=== PATIENT | male | born 1955 | race Caucasian/White ===

== ENCOUNTER 2016-07-31 13:37 | Inpatient (IN) | payer BC ==
--- NOTE | ~2016-07-31 | DS ---
Discharge Summary [place] [address] [place]. [address] NAME: HIRAL MERIDA : 51 STATUS : DIS IN PAT#: [id number] AGE: 61 ADM/REG DATE : 07/31/16 MR#: [id number] REPORT SERV DATE: 08/11/16 DICTATED BY: TERI BENNETT DATE: 08/10/16 REPORT STATUS : Draft TRANSCRIBED BY: MODL DATE: 08/10/16 ADMISSION DATE: 07/31/2016 DISCHARGE DATE: 08/05/2016 DISCHARGE DIAGNOSES: 1. Hepatic mass with radiologic evidence of cirrhosis and elevated alpha fetoprotein. 2. Fatigue. 3. Heme-positive stools. 4. Cirrhosis and hypersplenomegaly radiographically. 5. Diabetes type 2. DISCHARGE: Please see discharge summary job #[id number] done by Dr. Steven Smith for discharge summary as this is a complete discharge summary. The patient was actually discharged on 08/05/2016. Wait tomorrow for a post procedure as the patient did not have any complications, was able to be discharged home with followup also Dr. Chen on at 10 a.m. Again please see complete interim discharge summary performed by Dr. Steven Smith for complete hospital course, followups, and discharge medications. TICON/MEHUL Teri Bennett MD / [id number] CC: MD Yanet Funk D.O. F.A.C.P.
--- NOTE | ~2016-07-31 | CN ---
Consultation Report [facility] [address] [place]. [address] NAME: HIRAL NOE : 51 STATUS : ADM Vickie PAT#: [id number] AGE: 61 ADM/REG DATE : 07/31/16 MR#: [id number] REPORT SERV DATE: 08/01/16 DICTATED BY: RICHARD HENRIQUEZ DATE: 07/31/16 REPORT STATUS : Draft TRANSCRIBED BY: MODL DATE: 07/31/16 CONSULT NOTE DATE OF CONSULTATION: 07/31/2016 REQUESTING PHYSICIAN: Dr. Smith. REASON FOR EVALUATION: Abnormal CT scan. HISTORY: Mr. Noe is a 61-year-old gentleman whose chief complaint is feeling fatigued. This has been an ongoing problem for the past month and he is seeing his primary care physician as well as going to the emergency room on numerous occasions. He has had an extensive cardiac work up during this process and after having a stress test performed, he states he started feeling even worse. He describes having bad leg cramps that radiated into his back and go down both legs, and four days ago started having some vague abdominal pain. He states his abdominal pain is actually improved somewhat. He denies any diarrhea. He did note he had one bowel movement that seemed to be dark and possibly contained old blood, but this quickly resolved according to him. He has had colonoscopies in the past and Dr. 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 He has never felt this way before and does report a low grade fever and chills at home, but he never took his temperature. A CT scan was obtained in the emergency room. It was done without oral or intravenous contrast unfortunately. There is evidence of cirrhosis and splenomegaly as well as some ascites, and there was also concern about pneumatosis involving his right colon; however, on my read this is very difficult to delineate because he has absolutely no contrast given and it is very hard to determine whether this is intraluminal or not. He certainly does not have any free air or evidence of portal venous gas by my report. He went to the emergency room at [facility] Sunday night and was given IV fluids and immediately felt better and was released. He does not seem like he has had a good oral intake over the last few days. He denies any syncope though. PAST MEDICAL HISTORY: Significant for insulin, hypertension, coronary artery disease, gastroesophageal reflux disease. PREVIOUS SURGERIES: Include a cardiac stent and a laparoscopic cholecystectomy. He has also had some foot surgeries and some orthopedic surgeries. MEDICATIONS: Include vitamins, NovoLog, Levemir, Prinivil, Lopressor, Prilosec, Prandin, Mucinex. ALLERGIES: CIPRO. SOCIAL HISTORY: Admits to drinking daily. Denies tobacco abuse. He is and has a very supportive family. Consultation Report [address] [place]. [address] NAME: HIRAL NOE : 51 STATUS : ADM Vickie PAT#: [id number] AGE: 61 ADM/REG DATE : 07/31/16 MR#: [id number] REPORT SERV DATE: 08/01/16 DICTATED BY: RICHARD HENRIQUEZ DATE: 07/31/16 REPORT STATUS : Draft TRANSCRIBED BY: MEHUL DATE: 07/31/16 FAMILY HISTORY: Noncontributory. REVIEW OF SYSTEMS: Comprehensive 12-point review of systems obtained and completely negative other than what is mentioned in the history of present illness. PHYSICAL EXAMINATION: VITAL SIGNS: Temperature is 98.1, pulse 81, blood pressure 168/75. GENERAL: An elderly gentleman, in no acute cardiopulmonary distress. HEENT: Pupils are equal, round, and reactive to light. Extraocular movements are intact. Conjunctivae are not icteric. NECK: Supple. CARDIOVASCULAR: Regular rate and rhythm. PULMONARY: Normal respiratory effort. Breath sounds are clear. ABDOMEN: Soft. He has normal bowel sounds. He has very itegrof-sz-lbcg tenderness located on both the right and left side of his abdomen, but he has absolutely no peritoneal signs and no rebound and no pain out of proportion to physical exam and certainly, clinically does not have any evidence of horrible ischemia. EXTREMITIES: No clubbing, cyanosis, or edema. LABORATORY DATA: White blood cell count is 7, hematocrit 35, platelet count 61. Lactate 2.5. INR is 1.4. Sodium is 135, potassium 5.1, chloride 100, CO2 of 26, BUN 20, creatinine 0.9, glucose 210, albumin 2.7, total bilirubin 1.5, alkaline phosphatase 348, ALT 50, AST 58, lipase 210. CT scan of the abdomen and pelvis was obtained without contrast, demonstrate questionable pneumatosis and cirrhosis. ASSESSMENT: 1. Cirrhosis. 2. Diabetes. 3. Hypertension. 4. History of coronary artery disease. 5. Thrombocytopenia. 6. Possible ischemic colitis. PLAN: Clinically, he does not have an acute surgical abdomen. I would favor observation with aggressive fluid hydration and IV Flagyl. He needs to have repeat contrast study to help assess his circulation and possibly mesenteric duplex ultrasound and also would consider obtaining a GI consult. We will continue to follow along with you and we will only plan on doing surgery if he clinically deteriorates, but currently, hopefully he will improve with conservative measures. SHIRA/MEHUL Consultation Report [place] [id number] [place]. [address] NAME: HIRAL NOE : 51 STATUS : ADM Vickie PAT#: [id number] AGE: 61 ADM/REG DATE : 07/31/16 MR#: [id number] REPORT SERV DATE: 08/01/16 DICTATED BY: RICHARD HENRIQUEZ DATE: 07/31/16 REPORT STATUS : Draft TRANSCRIBED BY: MEHUL DATE: 07/31/16 Richard Henriquez M.D. / [id number]
--- NOTE | ~2016-07-31 | IDS ---
Interim Discharge Summary [facility] [address] [place]. [address] NAME: HIRAL MERIDA : 51 STATUS : ADM IN [facility]#: [id number] AGE: 61 ADM/REG DATE : 07/31/16 MR#: [id number] REPORT SERV DATE: 08/04/16 DICTATED BY: JR. SMITH WILLIAM JOHN DATE: 08/04/16 REPORT STATUS : Draft TRANSCRIBED BY: MODFlo DATE: 08/04/16 ADMISSION DATE: 07/31/2016 DISCHARGE DATE: 08/05/2016 TENTATIVE DATE OF DISCHARGE: 08/05/2016. DISCHARGE DIAGNOSES: 1. Hepatic mass with radiographic evidence of cirrhosis and elevated alpha-fetoprotein. 2. Fatigue. 3. Heme-positive stools. 4. Cirrhosis and hypersplenism radiographically. 5. Diabetes mellitus type 2. OPERATIONS, PROCEDURES, AND TREATMENTS: 1. Chest x-ray done on 07/31/2016 showed no acute cardiopulmonary abnormalities. 2. CT of the abdomen and pelvis with and without contrast on 07/31/2016, which showed cirrhotic liver with splenomegaly and ascites suggestive of liver failure with indeterminate defect in the right hepatic lobe with additional studies recommended. The noncontrast study showed pneumatosis, not confirmed with the contrast study. There was a cirrhotic liver with splenomegaly. 3. MRI of the abdomen done on 08/01/2016 showed cirrhotic liver with hepatomegaly and ascites. Multiple ill-defined defects in the right hepatic lobe, suspicious for multifocal hepatocellular cancer versus metastatic neoplasm. There is also a large wedge-shaped defect on the diffusion images of the left hepatic lobe, not as well further characterized on the contrast sequences, but suspect this could also harbor a diffuse infiltrating tumor pathology based on either on hepatocellular or metastatic origin. 4. CT-guided liver biopsy to be done today by Dr. Gibbs. TENTATIVE DISCHARGE MEDICATIONS: 1. Norvasc 10 mg daily. 2. Lipitor 20 mg daily. 3. B12 at 1000 mg daily. 4. Vitamin D 1000 units daily. 5. Levemir insulin 12 units twice a day. 6. Sliding scale Humalog insulin. 7. Lisinopril 20 mg twice a day. 8. Mag-Ox 500 mg daily. 9. Omeprazole 40 mg daily. 10.Propranolol 60 mg twice a day. 11.Aldactone 25 mg daily. 12.Albuterol metered-dose inhaler two puffs every four hours as needed. 13.Aspirin 81 mg, holding until seen by Dr. Chen. 14.PreserVision one capsule twice a day. 15.Mucinex 600 twice a day. Interim Discharge Summary [place] [address] [place]. [address] NAME: HIRAL MERIDA : 51 STATUS : ADM IN PAT#: [id number] AGE: 61 ADM/REG DATE : 07/31/16 MR#: [id number] REPORT SERV DATE: 08/04/16 DICTATED BY: JR. SMITH WILLIAM JOHN DATE: 08/04/16 REPORT STATUS : Draft TRANSCRIBED BY: MODFlo DATE: 08/04/16 HOSPITAL COURSE: The patient was a 61-year-old male presented to the emergency room on 07/31/2016 with extreme lethargy. The patient had a cardiac catheterization done one month ago by Dr. Sullivan, which was normal. Since then, he had been feeling fatigued, had some cough and fever to the point that he nearly cannot walk across the house. Initial exam showed blood pressure of 136/75, heart rate of 90, respiratory rate of 18, he is afebrile. Exam was remarkable for a slightly icteric appearance of the sclerae. CT of the abdomen showed pneumatosis of the cecum and proximal ascending colon. Stool was positive. INR was elevated at 1.4. Platelets were low. The patient is admitted to the clinical decision unit. He was seen in consultation by General Surgery, Dr. Disla. The initial noncontrast CT of the abdomen, which showed pneumatosis coli, was repeated with contrast, did not show evidence of pneumatosis. No further surgical intervention was considered. The patient did, however, have evidence of a defect in the liver, therefore, an MRI of the liver was performed as well as alpha- fetoprotein. The MRI is detailed above, which showed multiple ill-defined masses suspicious for hepatic cancer. Alpha-fetoprotein is 25.9. The patient was on aspirin 81 mg orally daily. At that time, I discussed this with Dr. Gibbs. We agreed to transfuse fresh frozen plasma and platelets. Unfortunately, in addition to the above products, the patient also received two units of packed red blood cells inadvertently. This was disclosed to the patient. The patient is to get his liver biopsies today, 08/04/2016, and will be observed overnight. If there is no evidence of bleeding or other complication, the patient will be discharged home tomorrow, 08/05/2016. I called Dr. Chen of General Surgery and discussed it with him and made a followup appointment for 08/10/2016 at [address] a[address] at [address] [place] [address]. The patient was made aware of the appointment and the importance of following up to ensure this potentially life-threatening process is handled appropriately. Regarding the heme-positive stools, he was seen by Dr. Mejia of Gastroenterology and recommend outpatient followup. PLAN: 1. Liver biopsy today. 2. Observe overnight. If no complications, the patient will be discharged tomorrow. 3. Follow up with Dr. Chen on at 10 a.m. For today's exam and laboratory, please see daily progress note. WJF/MEHUL Jose Carlos Smith Jr, MD / [id number] CC: Jose Carlos Smith Jr, MD Interim Discharge Summary [address] [address] NAME: HIRAL MERIDA : 51 STATUS : ADM IN [facility]#: [id number] AGE: 61 ADM/REG DATE : 07/31/16 MR#: [id number] REPORT SERV DATE: 08/04/16 DICTATED BY: JR. SMITH WILLIAM JOHN DATE: 08/04/16 REPORT STATUS : Draft TRANSCRIBED BY: MODFlo DATE: 08/04/16 Yanet Martines D.O. F.A.C.P.
--- NOTE | ~2016-07-31 | HP ---
History And Physical [place] [id number] [place]. [address] NAME: HIRAL MERIDA : 51 STATUS : ADM Vickie PAT#: [id number] AGE: 61 ADM/REG DATE : 07/31/16 MR#: [id number] REPORT SERV DATE: 07/31/16 DICTATED BY: SANA FIGUEREDO DATE: 07/31/16 REPORT STATUS : Draft TRANSCRIBED BY: MODFlo DATE: 07/31/16 DATE OF ADMISSION: 07/31/2016 REASON FOR ADMISSION: Fatigue. HISTORY: This is a 61-year-old white male, who has been having problems for about the last month. It probably goes back farther than that, perhaps two months because he had a cardiac catheterization done by Dr. Sullivan one month ago, which was normal. He has just been feeling fatigued. He had a cough and some fever associated with this and was improved when he took an aerosol treatment with albuterol. He now breathes well and his fever has gone away, however, he does feel just fatigue and cannot walk across the house. He did have some blood tests done in the office and was found to have a low albumin, high alkaline phosphatase, both of which is improved slightly on today's test. His total bilirubin had gone from 1.9 down to 1.5 now. He does have some atherosclerotic cardiovascular disease, but the cardiac catheterization was negative. He was followed by Dr. Ro for cirrhosis. He has had a lifelong thrombocytopenia. He has had splenomegaly and evidence of portal hypertension by CT scan, all of which implies cirrhosis of the liver. He was seen and examined in the emergency room by Lily, nurse practitioner. She called Dr. Disla originally because of pneumatosis coli on the CT scan. Dr. Disla requested CT scan of the abdomen and pelvis with contrast and returning call for consideration. PAST MEDICAL HISTORY: He has had some pancreatitis. He had ERCP, EGD, all done within the last year. He had the exercise tolerance test, which is slightly abnormal followed by cardiac catheterization. He says he was so fatigued after the exercise tolerance test that he could not move for several days. He is in the emergency room because of his extreme fatigue now and I requested to admit the patient for evaluation and treatment. Treatment is not discerned well yet, so observation status will be embarked upon. HOME MEDICATIONS: Include acetaminophen 325 p.o. q.4 hours p.r.n.; albuterol inhaler two puffs every four hours as needed; Norvasc 10 mg p.o. daily; artificial tears daily; aspirin 81 mg p.o. daily; atorvastatin 20 mg p.o. at bedtime; Omnicef 300 mg p.o. daily, starting on 07/24/[address] Martines; vitamin D 1000 units p.o. daily; vitamin B 1000 mcg p.o. daily; NovoLog sliding scale; Levemir 12 units subcutaneously b.i.d.; Prinivil 20 mg p.o. b.i.d.; Mag-Ox 250 mg two with lunch; metoprolol 50 mg p.o. b.i.d.; omeprazole 40 mg p.o. daily; Prandin 2 mg p.o., he uses this p.r.n., so he will diminish his insulin use; Mucinex as needed; and zinc, copper, lutein capsules two capsules twice a day. SOCIAL HISTORY: He is , lives with . 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 He lives in [place]. He previously attended [employer], but has not gone in some time. History And Physical [address] [address] NAME: HIRAL MERIDA : 51 STATUS : ADM Vickie PAT#: [id number] AGE: 61 ADM/REG DATE : 07/31/16 MR#: [id number] REPORT SERV DATE: 07/31/16 DICTATED BY: SANA FIGUEREDO DATE: 07/31/16 REPORT STATUS : Draft TRANSCRIBED BY: MODL DATE: 07/31/16 He quit drinking alcohol about two to three weeks ago. He has not had a drink in two to three weeks. He does not smoke cigarettes. FAMILY HISTORY: He knows of no particular disease that run in the family, especially that might affect his life expectancy. Strong family history of colon cancer. The patient is getting colonoscopies every five years [address] Ro. REVIEW OF SYSTEMS: He had a sleep study and had mild sleep apnea with 12.8 apnea-hypopnea index and low tena of oxygen saturation of 86%. He does have atrial fibrillation intermittently. He has had three episodes, but no anticoagulation has been given and he has discussed this specifically with Dr. Sullivan. PHYSICAL EXAMINATION: GENERAL: Well-developed white male, in no acute distress. VITAL SIGNS: Blood pressure 136/75 with a heart rate 90, respiratory rate 18, afebrile. HEENT: EOMI. Sclerae clear. Skin slightly icteric diffusely. He does have facial telangiectasias and slight rubor. NECK: No bruit without any JVD. CHEST: Clear to A and P. HEART: Regular S1 and S2 without murmur, gallop, or click. ABDOMEN: Soft. Bowel sounds positive. There is some tenderness in the pelvic area, right being greater than the left. No particular mass was felt. EXTREMITIES: Have no edema. Distal pulses are intact in the dorsalis pedis and posterior tibial. NEUROLOGIC: He does withdraw to plantar stimulation. Fire Protection Fabricator is equal and symmetric bilaterally. Coordination is intact. He has no tremor. He is symmetric and equal neurologically bilaterally. SKIN: Slightly icteric with telangiectasias on the face and some rubor. LYMPHATICS: There is no adenopathy palpable. LABORATORIES AND IMAGING: The CT scan of the abdomen showed pneumatosis of the cecum and proximal ascending colon with mild wall thickening concerning for possible ischemia. Dr. Disla has been consulted. CT scan of the abdomen has cirrhotic liver pattern with splenomegaly and some prominence of the main portal vein, particularly with portal hypertension. Stool was positive for blood. Lactate level was 2.5. CBC showed white count of 7000, hemoglobin 12.5, hematocrit 35.8, platelet count was 61,000 (this is a chronic problem). He said he has had all his life with the level being 68,000 prior to his gallbladder surgery in 2005. His prothrombin time was 1.4, INR with a PTT of 33.5. The portable chest x-ray showed no acute cardiopulmonary abnormality. Urinalysis shows specific gravity 1.019, negative dip, 2 white cells, 1 red cell per high-powered field with some hyaline casts. His CMP showed a sodium of 135, potassium 5.1. His creatinine was 0.99, BUN 20, glucose was 210, albumin was 2.7, globulin 4.3, total phosphorus was 1.5, and alkaline phosphatase is 348, AST 58, lipase 210. History And Physical [address] [place]. [address] NAME: HIRAL MERIDA : 51 STATUS : ADM Vickie PAT#: [id number] AGE: 61 ADM/REG DATE : 07/31/16 MR#: [id number] REPORT SERV DATE: 07/31/16 DICTATED BY: SANA FIGUEREDO DATE: 07/31/16 REPORT STATUS : Draft TRANSCRIBED BY: MEHUL DATE: 07/31/16 ASSESSMENT: 1. Generalized fatigue. This has been going on for over six weeks. He feels worse today. We will check multiple lab tests, including GGT and ammonia level. We will check cortisols diurnal and consider an ACTH stimulation test. 2. Pneumatosis coli. Dr. Disla wants contrast study to see if it is pathologic, perhaps a CTA will show some evidence of vascular compromise. 3. Heme-positive stool, question mesenteric vascular disease. 4. ASCVD, history of myocardial infarction status post cardiac catheterization with a little problem. 5. Hepatic cirrhosis, likely from the alcohol, though he may have had a hepatitis from a viral problem. We will check a CMV titer and Monospot test as well. 6. Generalized weakness. Checking for infectious versus endocrinologic. We will check cortisol levels at 8 p.m. and 8 a.m. to see if there is diurnal variation and consider ACTH stimulation test. 7. Fatigue. It is his primary complaint. 8. History of alcohol use. 9. Cirrhosis by CT scan evidence. He has not had anything to drink in the last two to three weeks because too fatigued to walk across the house to get it. 10.He has no cigarette use or abuse. 11.Thrombocytopenia. It is chronic and lifelong, though may be due to the alcohol suppression or hepatic hemogram and is compatible with the splenomegaly that was historically revealed. 12.Diabetes type 2 with fair control, most recently though when he has fever, he knows that it goes up. We will check a procalcitonin and a D-dimer test. 13.Melena about two or three days ago. We will get Dr. Ro involved as Dr. Ro is his primary patternmaker metal. PLAN: Checking lab test as mentioned above. Troponin level was normal at less than 0.02 and his cardiac catheterization being normal as well. We will not pursue that avenue, but look for infectious or endocrinologic etiologies of the primary complaint fatigue. For this, the patient is admitted to observation to see if his illness can be ruled in for further treatment. DB/MODL Sana Figueredo M.D. / [id number] CC: Jose Carlos Smith Jr, Juliane Gerard M.D. History And Physical [address] [address] NAME: HIRAL MERIDA : 51 STATUS : ADM Vickie PAT#: [id number] AGE: 61 ADM/REG DATE : 07/31/16 MR#: [id number] REPORT SERV DATE: 07/31/16 DICTATED BY: SANA FIGUEREDO DATE: 07/31/16 REPORT STATUS : Draft TRANSCRIBED BY: MODL DATE: 07/31/16 Yanet Martines D.O. F.A.C.P.
--- NOTE | ~2016-07-31 | CN ---
Consultation Report [facility] [address] [place]. [address] NAME: HIRAL NOE : 51 STATUS : ADM IN PAT#: [id number] AGE: 61 ADM/REG DATE : 07/31/16 MR#: [id number] REPORT SERV DATE: 08/03/16 DICTATED BY: CURTIS MEJIA DATE: 08/03/16 REPORT STATUS : Draft TRANSCRIBED BY: MODL DATE: 08/03/16 GI CONSULTATION DATE OF CONSULTATION: 08/02/2016 REASON FOR CONSULTATION: Cirrhosis and liver mass. HISTORY OF PRESENT ILLNESS: Mr. Noe is a 61-year-old gentleman who has previously been seen by Dr. Williams Ro recently who presented to [facility] with increasing fatigue. He has history of cirrhosis secondary to alcohol use, last used about two to three weeks ago. GI has been consulted for an abnormal CT scan which not only showed cirrhotic configuration and splenomegaly as well as stable ascites but also likely liver masses. His MELD with sodium is 13, without it is 11, platelets 54. INR is 1.4. Bilirubin 1.4. He had an EGD performed by Dr. Ro in 2014 which showed esophagitis and a hiatal hernia. No mention of any esophageal or gastric varices. He did have some gastritis and gastric polyps and a normal duodenum. He also had a cardiac catheterization performed last month which was normal. He denies any recent infections. No overt GI bleeding. No altered mental status. No increased swelling in his lower extremities or in his abdomen. PAST MEDICAL HISTORY: Pancreatitis, cirrhosis. SOCIAL HISTORY: Alcohol use. Denies tobacco. 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 FAMILY HISTORY: Colon cancer. MEDICATIONS: Reviewed. ALLERGIES: REVIEWED. PHYSICAL EXAMINATION: VITAL SIGNS: The patient is afebrile. His vital signs have been stable. He is awake, alert, and oriented x3. GENERAL: Well developed, well nourished, no acute distress. HEENT: Atraumatic, normocephalic. Mucous membranes moist. Anicteric. HEART: S1, S2. CHEST: Clear. ABDOMEN: Obese, soft, nontender. Normoactive bowel sounds. LABORATORY DATA: WBC 6.6, hemoglobin 12.4, hematocrit 35.9, MCV is 97, platelets 54. INR 1.4. Sodium 137, potassium 4.7, chloride 106, bicarb 24, BUN 22, creatinine 0.93, glucose 109, bilirubin 1.4. AST 85, ALT 49, alkaline phosphatase 426. IMPRESSION AND PLAN: Cirrhosis secondary to alcohol use. MELD score is 13 that is calculating with sodium. No signs of overt GI bleed. The patient is scheduled for a CT- Consultation Report [place] [address] [place]. [address] NAME: HIRAL NOE : 51 STATUS : ADM IN PAT#: [id number] AGE: 61 ADM/REG DATE : 07/31/16 MR#: [id number] REPORT SERV DATE: 08/03/16 DICTATED BY: CURTIS MEJIA DATE: 08/03/16 REPORT STATUS : Draft TRANSCRIBED BY: MEHUL DATE: 08/03/16 guided liver biopsy on Sunday. We will continue to follow with you regarding this. I will discuss this with Dr. Williams Ro when he returns. SELENE/MEHUL Curtis Mejia MD / [id number] CC: Jose Carlos Smith Jr, MD PRABHJOT PETERSON
[2016-07-31 11:16] LABS: A/G RATIO 0.6 (0.7-1.9); ALBUMIN 2.7 G/DL (3.5-5.0); ALKALINE PHOSPHATASE 348 U/L (45-117); BUN (BLOOD UREA NITROGEN) 20 MG/DL (6-23); CALCIUM, SERUM 9.1 MG/DL (8.5-10.4); CHLORIDE, SERUM 100 MMOL/L (96-112); CO2 (CARBON DIOXIDE) 26 MMOL/L (24-34); CREATININE 0.99 MG/DL (0.70-1.30); GFR AFRICAN AMERICAN 94 ML/MIN (>=60); GFR NON AFRICAN AMERICAN 81 ML/MIN (>=60); GLOBULIN 4.3 G/DL (2.5-4.1); GLUCOSE, SERUM 210 MG/DL (60-99); POTASSIUM, SERUM 5.1 MMOL/L (3.5-5.3); SGOT(AST) 58 U/L (5-40); SGPT(ALT) 50 U/L (5-65); SODIUM, SERUM 135 MMOL/L (135-148); TOTAL BILIRUBIN 1.5 MG/DL (0-1.2)
[2016-07-31 12:22] LABS: BASOPHILS 0.4 %; BASOPHILS ABSOLUTE 0.03 10/3/uL (0.0-0.16); EOSINOPHILS 1.4 %; ER CBC TAT 0 Hrs 03 Mins; IMMATURE GRANULOCYTES 4.1 %; IMMATURE GRANULOCYTES ABSOLUTE 0.29 10/3/uL (0.0-0.11); LYMPHOCYTES 15.2 %; LYMPHOCYTES ABSOLUTE 1.07 10/3/uL (0.67-4.30); MEAN CORPUS HGB CONC 34.9 g/dL (32.0-36.0); MEAN CORPUSCULAR HEMOGLOB 33.4 pg (26.0-34.0); MEAN CORPUSCULAR VOLUME 95.7 fL (80-100); MEAN PLATELET VOLUME 10.6 fL (9.2-13.0); MONOCYTES 9.7 %; MONOCYTES ABSOLUTE 0.68 10/3/uL (0.21-1.20); NEUTROPHILS 69.2 %; NEUTROPHILS ABSOLUTE 4.85 10/3/uL (2.02-8.40); RBC DISTRIBUTION WIDTH 13.9 % (12.0-16.0); RED CELL COUNT 3.74 10/6/uL (4.7-6.1)
[2016-07-31 12:23] LABS: HEMATOCRIT 35.8 % (40.0-51.0); HEMOGLOBIN 12.5 g/dL (13.6-17.8)
[2016-07-31 12:24] LABS: MANUAL DIFF NO %; PLATELET COUNT 61 10/3/uL (150-400)
[2016-07-31 12:28] LABS: ASCORBIC ACID (UR NOT ORDER) 40 (NEG); BILIRUBIN, URINE NEGATIVE (NEG); ER URINALYSIS TAT 0 Hrs 11 Mins; KETONE, URINE NEGATIVE (NEG); LEUKOCYTE ESTERASE(NOT OR NEG (NEG); NITRITE (URINE) NEG (NEG); WBC (NOT ORDERED) (RFLEX) 2 (0-5)
[2016-07-31 12:29] LABS: INTERNATIONAL NORMAL RATI 1.4 UNITS (-); PARTIAL THROMBO TIME 33.5 SEC (22.5-37.2); PROTIME (NOT ORD) 17.4 SEC (12.0-14.5)
[2016-07-31 12:40] LABS: PLATELET ESTIMATE DEC (ADEQUATE); RBC MORPHOLOGY NORM (NORMAL)
[2016-07-31 12:42] LABS: CALCIUM, SERUM 9.1 MG/DL (8.5-10.4); TROPONIN I <0.02 NG/ML (<0.05)
[~2016-07-31 13:37] MED LIST: ACIPHEX PO; ASAB PO; COREG25; GLUCPH PO; HYDROCHLOROT25 MG PO; LEVEMFLXPN SC; LEVEMIR; LIPITOR20 PO; LIPITOR40 PO; LISINOPRIL40 MG PO; LOP50 PO; MAG OXIDE250 MG PO; NORV5 PO; NOVOLOG SC; NOVOPEN SC; PRAND1 PO; PREND2 PO; PRILO PO; PRILOSEC40 MG PO; PRIN10 PO; PROTONIX PO; VITAMIN D31000 UNIT PO
[2016-07-31] MEDS ORDERED: PROVHFA INH (14:00)
[2016-07-31] MEDS ORDERED: OMNICEF300 PO (14:00)
[2016-07-31] MEDS ORDERED: NORV10 PO (14:04)
[2016-07-31] MEDS ORDERED: PRILOSEC40 MG PO (14:04)
[2016-07-31] MEDS ORDERED: LIPITOR20 PO (14:04)
[2016-07-31] MEDS ORDERED: PRIN20 PO (14:04)
[2016-07-31] MEDS ORDERED: LOP50 PO (14:04)
[2016-07-31] MEDS ORDERED: LEVEMFLXPN SC (14:05)
[2016-07-31] MEDS ORDERED: NOVOLOG SC (14:05)
[2016-07-31] MEDS ORDERED: ASAB PO (14:07)
[2016-07-31] MEDS ORDERED: PREND2 PO (14:07)
[2016-07-31] MEDS ORDERED: VITAMIN D1000 UNI1 PO (14:08)
[2016-07-31] MEDS ORDERED: MAG OXIDE250 MG PO (14:08)
[2016-07-31] MEDS ORDERED: CYANO1000T PO (14:08)
[2016-07-31] MEDS ORDERED: PRESERVISION A1 EAC1 PO (14:08)
[2016-07-31] MEDS ORDERED: BION TEARS OPH (14:09)
[2016-07-31] MEDS ORDERED: T PO (14:09)
[2016-07-31] MEDS ORDERED: MUCINEX PO (14:09)
[2016-08-01 04:17] LABS: BASOPHILS 0.3 %; BASOPHILS ABSOLUTE 0.02 10/3/uL (0.0-0.16); EOSINOPHILS ABSOLUTE 0.06 10/3/uL (0.0-0.53); HEMATOCRIT 34.2 % (40.0-51.0); HEMOGLOBIN 11.9 g/dL (13.6-17.8); IMMATURE GRANULOCYTES 3.3 %; LYMPHOCYTES 20.4 %; LYMPHOCYTES ABSOLUTE 1.22 10/3/uL (0.67-4.30); MEAN CORPUS HGB CONC 34.8 g/dL (32.0-36.0); MEAN CORPUSCULAR HEMOGLOB 33.5 pg (26.0-34.0); MEAN CORPUSCULAR VOLUME 96.3 fL (80-100); MEAN PLATELET VOLUME 10.3 fL (9.2-13.0); MONOCYTES 9.7 %; MONOCYTES ABSOLUTE 0.58 10/3/uL (0.21-1.20); NEUTROPHILS 65.3 %; NEUTROPHILS ABSOLUTE 3.91 10/3/uL (2.02-8.40); PLATELET COUNT 50 10/3/uL (150-400); RBC DISTRIBUTION WIDTH 13.8 % (12.0-16.0); RED CELL COUNT 3.55 10/6/uL (4.7-6.1)
[2016-08-01 04:25] LABS: MANUAL DIFF NO %
[2016-08-01 04:42] LABS: A/G RATIO 0.6 (0.7-1.9); ALBUMIN 2.4 G/DL (3.5-5.0); BUN (BLOOD UREA NITROGEN) 19 MG/DL (6-23); CALCIUM, SERUM 8.6 MG/DL (8.5-10.4); CHLORIDE, SERUM 104 MMOL/L (96-112); CO2 (CARBON DIOXIDE) 24 MMOL/L (24-34); CREATININE 0.85 MG/DL (0.70-1.30); GAMMA GT 485 U/L (5-85); GFR AFRICAN AMERICAN 107 ML/MIN (>=60); GFR NON AFRICAN AMERICAN 93 ML/MIN (>=60); GLOBULIN 3.9 G/DL (2.5-4.1); POTASSIUM, SERUM 4.7 MMOL/L (3.5-5.3); SGOT(AST) 85 U/L (5-40); SGPT(ALT) 49 U/L (5-65); SODIUM, SERUM 139 MMOL/L (135-148); TOTAL BILIRUBIN 1.4 MG/DL (0-1.2); TOTAL PROTEIN 6.3 G/DL (6.0-8.5)
[2016-08-01 04:45] LABS: ALKALINE PHOSPHATASE 426 U/L (45-117); CPK 82 U/L (0-200); GLUCOSE, SERUM 121 MG/DL (60-99)
[2016-08-01 06:08] LABS: PROCALCITONIN 1.17 ng/mL (<0.5)
[2016-08-01 07:17] LABS: SED RATE 91 MM/HR (0-15)
[2016-08-01 07:33] LABS: POLYCHROMASIA 1+ (2-5/OIF) (0-1/OIF)
[2016-08-02 07:42] LABS: BASOPHILS 0.6 %; BASOPHILS ABSOLUTE 0.04 10/3/uL (0.0-0.16); EOSINOPHILS 1.2 %; EOSINOPHILS ABSOLUTE 0.08 10/3/uL (0.0-0.53); HEMATOCRIT 35.9 % (40.0-51.0); HEMOGLOBIN 12.4 g/dL (13.6-17.8); IMMATURE GRANULOCYTES 2.3 %; IMMATURE GRANULOCYTES ABSOLUTE 0.15 10/3/uL (0.0-0.11); LYMPHOCYTES 18.6 %; LYMPHOCYTES ABSOLUTE 1.23 10/3/uL (0.67-4.30); MEAN CORPUS HGB CONC 34.5 g/dL (32.0-36.0); MEAN CORPUSCULAR HEMOGLOB 33.5 pg (26.0-34.0); MEAN PLATELET VOLUME 10.2 fL (9.2-13.0); MONOCYTES 9.7 %; MONOCYTES ABSOLUTE 0.64 10/3/uL (0.21-1.20); NEUTROPHILS 67.6 %; NEUTROPHILS ABSOLUTE 4.46 10/3/uL (2.02-8.40); PLATELET COUNT 54 10/3/uL (150-400); RBC DISTRIBUTION WIDTH 14.2 % (12.0-16.0); WHITE BLOOD CELLS 6.6 10/3/uL (4.5-10.5)
[2016-08-02 07:47] LABS: MANUAL DIFF NO %
[2016-08-02 07:59] LABS: BUN (BLOOD UREA NITROGEN) 22 MG/DL (6-23); CALCIUM, SERUM 9.1 MG/DL (8.5-10.4); CHLORIDE, SERUM 106 MMOL/L (96-112); CO2 (CARBON DIOXIDE) 24 MMOL/L (24-34); CREATININE 0.93 MG/DL (0.70-1.30); FREE T4 1.05 NG/DL (0.76-1.46); GFR AFRICAN AMERICAN 101 ML/MIN (>=60); GFR NON AFRICAN AMERICAN 87 ML/MIN (>=60); GLUCOSE, SERUM 109 MG/DL (60-99); POTASSIUM, SERUM 4.7 MMOL/L (3.5-5.3); SODIUM, SERUM 137 MMOL/L (135-148)
[2016-08-02 08:00] LABS: PLATELET ESTIMATE DEC (ADEQUATE); RBC MORPHOLOGY NORM (NORMAL)
[2016-08-03 06:02] LABS: ALBUMIN 2.3 G/DL (3.5-5.0); BUN (BLOOD UREA NITROGEN) 24 MG/DL (6-23); CALCIUM, SERUM 8.4 MG/DL (8.5-10.4); CHLORIDE, SERUM 106 MMOL/L (96-112); CO2 (CARBON DIOXIDE) 20 MMOL/L (24-34); CREATININE 0.86 MG/DL (0.70-1.30); DIRECT BILIRUBIN 0.9 MG/DL (0.0-0.4); GFR AFRICAN AMERICAN 107 ML/MIN (>=60); GFR NON AFRICAN AMERICAN 92 ML/MIN (>=60); GLUCOSE, SERUM 104 MG/DL (60-99); INDIRECT BILIRUBIN(NOT ORDER) 0.9 MG/DL (0.1-0.9); POTASSIUM, SERUM 4.6 MMOL/L (3.5-5.3); SGOT(AST) 78 U/L (5-40); SGPT(ALT) 45 U/L (5-65); SODIUM, SERUM 138 MMOL/L (135-148); TOTAL BILIRUBIN 1.8 MG/DL (0-1.2); TOTAL PROTEIN 5.9 G/DL (6.0-8.5)
[2016-08-03 06:10] LABS: ALKALINE PHOSPHATASE 473 U/L (45-117)
[2016-08-03 16:00] LABS: CMV DNA PCR QUAL Not Detected (NOTDET); CMV SOURCE Plasma (())
[2016-08-04 08:56] LABS: PARTIAL THROMBO TIME 33.4 SEC (22.5-37.2)
[2016-08-04 08:57] LABS: INTERNATIONAL NORMAL RATI 1.7 UNITS (-); PROTIME (NOT ORD) 20.1 SEC (12.0-14.5)
[2016-08-04 08:58] LABS: HEMATOCRIT 38.3 % (40.0-51.0); HEMOGLOBIN 13.5 g/dL (13.6-17.8); MEAN CORPUS HGB CONC 35.2 g/dL (32.0-36.0); MEAN CORPUSCULAR HEMOGLOB 32.5 pg (26.0-34.0); MEAN PLATELET VOLUME 10.3 fL (9.2-13.0); NUCLEATED RED BLOOD CELLS 1.4 /100WBC (0-0); PLATELET COUNT 65 10/3/uL (150-400); RBC DISTRIBUTION WIDTH 16.3 % (12.0-16.0); RED CELL COUNT 4.15 10/6/uL (4.7-6.1); WHITE BLOOD CELLS 7.2 10/3/uL (4.5-10.5)
[2016-08-04 08:59] LABS: MANUAL DIFF YES %; MEAN CORPUSCULAR VOLUME 92.3 fL (80-100)
[2016-08-04 09:24] LABS: BAND NEUTROPHILS 11 %; BASOPHILS 1 %; BASOPHILS ABSOLUTE (CALC) 0.07 10/3/uL (0.0-0.16); EOSINOPHILS 1 %; EOSINOPHILS ABSOLUTE (CALC) 0.07 10/3/uL (0.0-0.53); IMMATURE GRANS ABSOLUTE (CALC) 0.07 10/3/uL (0.0-0.11); LYMPHOCYTES 23 %; LYMPHOCYTES ABSOLUTE (CALC) 1.66 10/3/uL (0.67-4.30); METAMYELOCYTES 1 %; MONOCYTES 5 %; MONOCYTES ABSOLUTE (CALC) 0.36 10/3/uL (0.21-1.20); NEUTROPHILS ABSOLUTE (CALC) 4.97 10/3/uL (2.02-8.40); PLATELET ESTIMATE DEC (ADEQUATE); POLYCHROMASIA 1+ (2-5/OIF) (0-1/OIF); SEGMENTED NEUTROPHIL (0) 58 %; TOTAL NUCLEATED CELLS 100
[2016-08-04 10:37] LABS: HEPATITIS B SURFACE ANTIGEN NON-REACTIVE (NON-REACT)
[2016-08-04 11:04] LABS: HEPATITIS C ANTIBODY NON-REACTIVE (NON-REACT)
[2016-08-04 11:05] LABS: HEPATITIS B CORE AB IGM NON-REACTIVE (NON-REAC)
[2016-08-04 11:07] LABS: HEP A ANTIBODY IGM NON-REACTIVE (NON-REACT)
[2016-08-05 07:11] LABS: BASOPHILS 0.6 %; BASOPHILS ABSOLUTE 0.03 10/3/uL (0.0-0.16); EOSINOPHILS 1.5 %; EOSINOPHILS ABSOLUTE 0.08 10/3/uL (0.0-0.53); HEMATOCRIT 36.6 % (40.0-51.0); HEMOGLOBIN 12.6 g/dL (13.6-17.8); IMMATURE GRANULOCYTES 2.4 %; IMMATURE GRANULOCYTES ABSOLUTE 0.13 10/3/uL (0.0-0.11); LYMPHOCYTES ABSOLUTE 1.14 10/3/uL (0.67-4.30); MEAN CORPUS HGB CONC 34.4 g/dL (32.0-36.0); MEAN CORPUSCULAR HEMOGLOB 32.6 pg (26.0-34.0); MEAN CORPUSCULAR VOLUME 94.6 fL (80-100); MEAN PLATELET VOLUME 9.6 fL (9.2-13.0); MONOCYTES 8.8 %; MONOCYTES ABSOLUTE 0.48 10/3/uL (0.21-1.20); NEUTROPHILS 65.7 %; NEUTROPHILS ABSOLUTE 3.57 10/3/uL (2.02-8.40); RBC DISTRIBUTION WIDTH 16.9 % (12.0-16.0); RED CELL COUNT 3.87 10/6/uL (4.7-6.1); WHITE BLOOD CELLS 5.4 10/3/uL (4.5-10.5)
[2016-08-05 07:19] LABS: MANUAL DIFF NO %; PLATELET COUNT 87 10/3/uL (150-400)
[2016-08-05 07:27] LABS: BUN (BLOOD UREA NITROGEN) 29 MG/DL (6-23); CALCIUM, SERUM 9.3 MG/DL (8.5-10.4); CHLORIDE, SERUM 106 MMOL/L (96-112); CO2 (CARBON DIOXIDE) 23 MMOL/L (24-34); CREATININE 0.93 MG/DL (0.70-1.30); GFR AFRICAN AMERICAN 101 ML/MIN (>=60); GFR NON AFRICAN AMERICAN 87 ML/MIN (>=60); GLUCOSE, SERUM 114 MG/DL (60-99); POTASSIUM, SERUM 4.5 MMOL/L (3.5-5.3); SODIUM, SERUM 137 MMOL/L (135-148)
[2016-08-05] MEDS ORDERED: SPIRO25 PO (15:12)
[2016-08-05] MEDS ORDERED: INDE60 PO (15:12)
== END 2016-08-05 15:41 | disposition home or self-care (01) | DRG 436 ==
LOC: ER 13:37 → CDU1 16:58 → 4SO 08-02 16:50
PROVIDERS: Emergency Medicine; Internal Medicine; Nurse Practitioner Family
PROC: 30233R1 Transfusion of Nonautologous Platelets into Peripheral Vein, Percutaneous Approach (ICD-10-PCS; 2016-08-03)
PROC: 30233N1 Transfusion of Nonautologous Red Blood Cells into Peripheral Vein, Percutaneous Approach (ICD-10-PCS; 2016-08-03)
PROC: 0FB13ZX Excision of Right Lobe Liver, Percutaneous Approach, Diagnostic (ICD-10-PCS; principal; 2016-08-04)
PROC: 30233K1 Transfusion of Nonautologous Frozen Plasma into Peripheral Vein, Percutaneous Approach (ICD-10-PCS; 2016-08-04)
DX: C22.9 Malignant neoplasm of liver, not specified as primary or secondary (principal); K76.6 Portal hypertension; D69.6 Thrombocytopenia, unspecified; I48.2 Chronic atrial fibrillation; I27.2 Other secondary pulmonary hypertension; K92.1 Melena; K70.30 Alcoholic cirrhosis of liver without ascites; D64.9 Anemia, unspecified; I10 Essential (primary) hypertension; E11.9 Type 2 diabetes mellitus without complications; R53.83 Other fatigue; I25.10 Atherosclerotic heart disease of native coronary artery without angina pectoris; K63.89 Other specified diseases of intestine; K21.9 Gastro-esophageal reflux disease without esophagitis; I25.2 Old myocardial infarction; Z79.4 Long term (current) use of insulin; Z95.5 Presence of coronary angioplasty implant and graft; Z98.890 Other specified postprocedural states; Z88.1 Allergy status to other antibiotic agents; R53.1 Weakness; Z79.82 Long term (current) use of aspirin; E66.9 Obesity, unspecified; Z68.30 Body mass index [BMI] 30.0-30.9, adult
CPT/HCPCS: 36415; 47000; 71010; 74176; 74177; 74183; 77012; 80048; 80053; 80074; 80076; 81001; 82105; 82140; 82310; 82533; 82550; 82962; 82977; 83605; 83690; 83735; 84145; 84439; 84443; 84484; 85025; 85379; 85610; 85652; 85730; 86140; 86308; 86850; 86900; 86901; 86920; 87496; 88307; 88333; 88341; 88342; 96374; 96375; 99285; A9270-GY; A9581; C9113; J1170; J2250; J2405; J2543; J3010; P9016; P9035; P9059; Q9967

== ENCOUNTER 2016-08-15 14:12 | Inpatient (IN) | payer BC ==
--- NOTE | ~2016-08-15 | CN ---
Consultation Report [facility] [address] [place]. [address] NAME: HIRAL MERIDA : 51 STATUS : ADM IN PAT#: [id number] AGE: 61 ADM/REG DATE : 08/15/16 MR#: [id number] REPORT SERV DATE: 08/16/16 DICTATED BY: CHEN THURMAN DATE: 08/16/16 REPORT STATUS : Draft TRANSCRIBED BY: MODL DATE: 08/16/16 PALLIATIVE CARE CONSULTATION DATE OF CONSULTATION: 08/16/2016 Consult is from 1350 to 1450 hours. Allergies are listed to ciprofloxacin. REASON FOR CONSULTATION: Clarification of plans of care, facilitation of communication in the family and transition planning. Hiral is an unfortunate 61-year-old gentleman who has had several admissions in the last weeks with weakness, malaise, and general sense of debility. He has chronic low platelets. His INR has been rising and, he has subsequently been diagnosed after a liver biopsy with both cirrhosis as well as a cholangiocarcinoma. Multiple MRI scan nodules are noted on the most recent imaging study. Possible evaluation at [place] is being contemplated secondary to lack of surgical options here. He basically reports a 6-week history of cough, malaise, and lack of energy. He is rather surprised and is stunned by his diagnosis. He now returns with attempts of diuresis having been made with an increasing creatinine of 2.2. He is admitted for IV fluids, general supportive care, and further clarification of oncological plan. The patient requests full resuscitation at this time. PAST MEDICAL HISTORY: Includes pancreatitis and insulin-dependent diabetes. He does have a strong ethanol history which he quit 1 month ago. Please see below. He has been diagnosed with cirrhosis on biopsy. He has a history of heart disease but a recent catheterization was unimpressive. He has had a previous stent placement. He has longstanding splenomegaly and several orthopedic issues. FAMILY HISTORY: Includes hypertension and colon cancer. SOCIAL HISTORY: He is a nonsmoker. Quit alcohol a month ago and admits to having a beer when he comes home from work and a couple of highballs throughout the evening. Despite this, he also mentions an almost lifetime history of thrombocytopenia. He is to his , he indicates his name as Nyasia although she is listed as Elis, of some 40 years. They appear to have several children. 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 He is of Orthodoxy vito but is not an active zoroastrianism-goer at this time. They were much more involved when the children were younger. REVIEW OF SYSTEMS: Includes no evidence of weight loss and in fact, his weight compared to May of 2016, is Consultation Report [facility] [address] [place]. [address] NAME: HIRAL MERIDA : 51 STATUS : ADM IN PAT#: [id number] AGE: 61 ADM/REG DATE : 08/15/16 MR#: [id number] REPORT SERV DATE: 08/16/16 DICTATED BY: CHEN THURMAN DATE: 08/16/16 REPORT STATUS : Draft TRANSCRIBED BY: MEHUL DATE: 08/16/16 stable. He does have some cough, congestion, and complaints of rhinorrhea at times. He has had intermittent atrial fibrillation by history but is not in that rhythm at this time. Respirations, mild desaturation during his sleep study but does not wear supplemental oxygen. GI review is relatively benign. Hematological again, the patient reports lifetime low platelets. He does not have a substantial amount of pain or discomfort. LAB DATA: Significant laboratory work includes an ammonia level of 38, platelets 22,000, INR of 2.4. His BUN is 88, creatinine 2.2, his albumin is 2, his bilirubin is up to 5, this is a substantial rise compared to the last admission here about a month ago. PHYSICAL EXAMINATION: VITAL SIGNS: Weight 227. Blood pressure 134/63, pulse 60 regular, respirations 16 nonlabored, temperature 97.6, and room air pulse ox is 98%. HEENT: The head is normocephalic. The eyes show equal reactive pupils. He does have some paleness of his conjunctivae and he does have scleral icterus. SKIN: His overall complexion is sallow. HEART: Exam shows S1, S2. Regular rate and rhythm. No murmurs, gallops, or extra heart sounds. Pulses are symmetrical and preserved. LUNGS: Show coarse clear breath sounds without rales, wheezes, or rhonchi. GI: Shows a somewhat protuberant abdomen without obvious tenderness or signs of peritoneal irritation. : Not examined. HEMATOLOGICAL: Bruise on the right arm. No petechiae. MUSCULOSKELETAL: Unimpressive. NEUROLOGICAL: Nonfocal. He moves all extremities. He has an occasional stammer with his speech. PSYCHIATRIC: He is a bit overwhelmed by the entire situation and very concerned that his always tends to minimize problems and is having a hard time accepting and understanding the intense nature of his current problems. He is awake, alert, and appropriate. He does not appear to be grossly depressed but is clearly concerned about his situation which he understands is going to shorten his life. His skin is warm and dry. Slightly pale. IMPRESSION/DICUSSION: Certainly discontinuing his diuresis underlying his kidneys recover would be important. We discussed with the patient about his not believing, what is happening, how to best support her in that. He would love to be able to talk to her about additional decision making processes. He relates a story of him going in for a cardiac procedure and trying to tell her where the important papers are, who the important people were, and how to access financial information should she need it and she basically looked it and said "you are just having a test done, why would I want to know that." He is aware of the fact his life is going to be shortened by this current process but he does not know how much and would like to know. He has told his children but clearly the family and do need additional support. We explained a little bit around the issues of critical illness etc. such as dialysis in the current setting, telling him that I did not believe it was something that we would offer to him nor do I think it was something, I could recommend should his kidneys fail on top of everything else. He gradually accepted that Consultation Report [place] [id number] [facility] [place]. [address] NAME: HIRAL MERIDA : 51 STATUS : ADM IN PAT#: [id number] AGE: 61 ADM/REG DATE : 08/15/16 MR#: [id number] REPORT SERV DATE: 08/16/16 DICTATED BY: CHEN THURMAN DATE: 08/16/16 REPORT STATUS : Draft TRANSCRIBED BY: MEHUL DATE: 08/16/16 information. I suspect given his history, laboratory parameters and the microscopic findings of the biopsies that his alcohol use is probably substantially more intense than what he relates. Unfortunate the family dynamics will of course go along with that process and are going to have to be addressed. I was fortunate enough that Dr. Sherwood available seated in our interview and had discussed the case with him. VANDA/MEHUL Chen Thurman M.D. / [id number] CC: MD Yanet Funk D.O. F.A.C.P.
--- NOTE | ~2016-08-15 | DS ---
Discharge Summary [facility] [id number] [place]. [address] NAME: HIRAL NOE : 51 STATUS : DIS IN PAT#: [id number] AGE: 61 ADM/REG DATE : 08/15/16 MR#: [id number] REPORT SERV DATE: 08/23/16 DICTATED BY: TERI BENNETT DATE: 08/22/16 REPORT STATUS : Draft TRANSCRIBED BY: MODL DATE: 08/22/16 ADMISSION DATE: 08/15/2016 DISCHARGE DATE: 08/21/2016 DISCHARGE DIAGNOSES: 1. Acute kidney injury, multifactorial. 2. Hypokalemia. 3. Pancytopenia. 4. Cholangiocarcinoma. 5. Cirrhosis. 6. Insulin-dependent diabetes. 7. Hyperbilirubinemia secondary to cholangiocarcinoma. 8. Hypoxia, requiring O2 2 L. DISCHARGE DISPOSITION: Home with home health and palliative care assistance. FOLLOWUP: To follow up with Dr. Ro this week after consultation with [place] for further possible precautions to replace the barrier handwashing to prevent the patient infection. DISCHARGE MEDICATIONS: Vitamin D 1000 units p.o. every morning, Levemir 12 units subcu b.i.d. with sliding scale insulin home dose, lactulose 30 mL p.o. b.i.d., Prilosec 40 mg one tablet p.o. every morning, Inderal decreased to 30 mg p.o. b.i.d., rifaximin 550 mg p.o. b.i.d., Ursodiol 300 mg one tablet p.o. before breakfast and supper, Lasix restarted at 40 mg 1 tablet p.o. daily decreased from b.i.d. dose to be reassessed with PCP and Dr. Ro for dose titration with assistance of Home Health, spironolactone discontinued in the presence of JULIEN and hyperkalemia, albuterol as needed two puffs q.4 hours home dose, lisinopril discontinued in the presence of hyperkalemia, amlodipine discontinued, PreserVision vitamin capsule daily. CONSULTATIONS: Dr. Ro and Dr. Merchant. HOSPITAL COURSE: Please see H and P for complete details of HPI. Briefly, Mr. Noe is a very pleasant 61-year-old male who unfortunately has received diagnosis of cholangiocarcinoma with noted liver cirrhosis, who presents after having follow up with Dr. Love, Oncology, and noted to have abnormal labs and recommend for ER evaluation. The patient was noted to be have recent adjustments in diuretics including spironolactone and was previously on lisinopril and double dose of Lasix, although slightly volume depleted. Electrolyte abnormalities with hyperkalemia and JULIEN were noted. The patient did have a MELD score in 31. Nephrotoxins were held and creatinine was improved with fluid hydration. No hyperacute T waves were noted on EKG. Hyperkalemia was improved throughout stay. During throughout stay, the patient was also continued to have pancytopenia episodes and increased hyperbilirubinemia. Palliative Care was also consulted and discussed poor prognosis as Oncology recommendations were Hospice. After review chemo-radiation, not viable options, the patient was additionally in discussion with [facility] as previously was planning to go for possible transplant candidate, was waiting for call back even at time of discharge; Discharge Summary [address] [address] NAME: HIRAL NOE : 51 STATUS : DIS IN PAT#: [id number] AGE: 61 ADM/REG DATE : 08/15/16 MR#: [id number] REPORT SERV DATE: 08/23/16 DICTATED BY: TERI BENNETT DATE: 08/22/16 REPORT STATUS : Draft TRANSCRIBED BY: MEHUL DATE: 08/22/16 however, currently the patient is still in discussion with [facility] with therapist's assistant of Dr. Ro to undergo multidisciplinary rounds this week to review case and possible options. The patient was started on Ursodiol for hyperbilirubinemia, although the patient did not have any confusion or itching episodes. Bilirubin did remain quite elevated. Discussion with GI, this should be continued progression of disease process. Findings were explained with the patient and at bedside and poor prognosis noted, palliative resources given. Home Health has been arranged. I have explained multiple times that side effect of symptoms. I have explained to the patient and family progression of disease with worsening labs particularly blood counts, bilirubin, and possible further renal dysfunction in the near future. The patient has been told life expectancy anywhere from two to four weeks and understands this. It was discussed with who is still requesting full code at this time. On day of discharge, the patient was strongly recommended and requesting discharge home to be with his family with understanding that there is minimal options for slowing down progress, although after discussion with Oncology and GI, although we have minimal medical options. I will try to assist with any palliative options I can for the patient in this in the presence of allowing the patient to return home to his family for the patient's overall well-being and the patient's request. I have also arranged for oxygen at home. The patient and family agreeable, appreciative of care given throughout the hospital stay and understands the plan outlined with Dr. Ro as an outpatient. Greater than 30 minutes with discharge planning, med reconciliation. DICTATED BY: MD NEDA Funk/MODL Teri Bennett MD / [id number] CC: MD Yanet Funk D.O. F.A.C.P.
--- NOTE | ~2016-08-15 | HP ---
History And Physical [place] [id number] [facility] [place]. [address] NAME: HIRAL MERIDA : 51 STATUS : ADM IN [facility]#: [id number] AGE: 61 ADM/REG DATE : 08/15/16 MR#: [id number] REPORT SERV DATE: 08/15/16 DICTATED BY: TERI BENNETT DATE: 08/15/16 REPORT STATUS : Draft TRANSCRIBED BY: MODL DATE: 08/15/16 DATE OF ADMISSION: 08/15/2016 CHIEF COMPLAINT: Abnormal labs and progressive weakness. HISTORY OF PRESENT ILLNESS: The patient is a 61-year-old male with past medical history of insulin-dependent diabetes, recent diagnosis of cirrhosis with recent biopsy, initially thought HCC, updated pathology reporting cholangiocarcinoma, who has been followed by Dr. Ro, GI; Dr. Love, Oncology; and Dr. Chen, General Surgery. He was reported to be referred to [place] with collaboration with Dr. Love and Dr. Chen for further evaluation, as minimal surgical options are possible at this time locally. The patient was awaiting for followup appointment, but has not yet heard back for referral. Since discharge, the patient reports that he was feeling quite well at discharge, but has now had continuous weakness, hyperkalemia. No pain, no radiating symptoms. Does have occasional haziness-type feel with slightly improved swelling overall, but has had decreased p.o. intake. The patient has been taking medication, was also on spironolactone and Lasix adjustments. There are no worsening or relieving symptoms. Symptoms are still currently present. The patient was noted to have elevated creatinine and potassium in clinic. Was told to come to ER today to have followup, which confirmed and did have increased elevations. REVIEW OF SYSTEMS: GENERAL: Noted for no fever, chills. EYES: Did have yellowing of skin, but no pain. ENT: No hearing loss or congestion. NEURO: No headaches. No true confusion, but does have mild slowness-type feeling. SKIN: Yellowing of skin. No rashes. RESPIRATORY: No shortness of breath or cough. CV: No chest pain or elevated heart rate. GI: No nausea or vomiting. Did have occasional diarrhea. No abdominal pain. : No dysuria or hematuria. MUSCULOSKELETAL: No myalgias. Did have chronic swelling, but slightly improved from recent discharge. ENDO: Does have fatigue and does have elevated blood sugars. HEME: No bleeding or bruising. IMMUNOLOGIC: No rhinorrhea. PSYCH: No anxiety above baseline. PAST MEDICAL HISTORY: Pancreatitis; recent diagnosis of hepatocellular carcinoma and cirrhosis; type 2 diabetes, insulin dependent; alcohol use history. FAMILY HISTORY: No alcohol or illicits. Positive hypertension. No cancer or CVA history. 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 Lives in [place]. Quit alcohol approximately a month ago. No cigarettes or illicits. History And Physical [address] [place]. [address] NAME: HIRAL MERIDA : 51 STATUS : ADM IN [facility]#: [id number] AGE: 61 ADM/REG DATE : 08/15/16 MR#: [id number] REPORT SERV DATE: 08/15/16 DICTATED BY: TERI BENNETT DATE: 08/15/16 REPORT STATUS : Draft TRANSCRIBED BY: MEHUL DATE: 08/15/16 SURGICAL HISTORY: No recent surgeries, but has had history of ERCP and EGD in the last year and cardiac cath for abnormal stress test, followed by Dr. Sullivan. ALLERGIES: CIPRO. HOME MEDICATIONS: Albuterol, Norvasc, vitamin D3, Lasix, NovoLog, sliding scale insulin, Levemir, lisinopril, Prilosec, Inderal, Aldactone, and PreserVision. PHYSICAL EXAMINATION: VITAL SIGNS: The patient's blood pressure 99/56, pulse 62, temperature 97.6, respirations 18, O2 saturations 98% on room air. GENERAL: Well developed, well nourished, but slightly ill appearing, jaundiced. EYES: Jaundiced. EOMI. ENT: Nares patent. Tongue midline. RESPIRATORY: Clear to auscultation. No wheezes. CV: Regular rate. Mild ejection murmur. Bilateral pedal edema. GI: Soft, nontender. Central obesity. Nondistended. : Deferred. MUSCULOSKELETAL: Moves all extremities x4. SKIN: Warm and dry with jaundice on majority of the skin. LYMPH: Bilateral edema. HEME: No bleeding or bruising. NEURO: Alert and oriented. No asterixis. Moves all extremities x4. Symmetrical strength, but generalized weakness. PSYCH: Appropriate mood and affect. LABORATORY DATA: Ammonia 38. CBC; WBC count 2.3, H and H 13.9 and 40.5, platelets 22, bands 9, INR 2.4. CMP; sodium 135, potassium 6.3, chloride 107, bicarb 23, BUN and creatinine 88 and 2.22, glucose 187, T bilirubin 5.2, AST and ALT 130 and 82, alkaline phosphatase 588, albumin 2.1. EKG, normal sinus rhythm. No peaked T waves. Inferior changes. Ventricular rate 62, QTc 418. Chest x-ray, no acute cardiopulmonary findings. ASSESSMENT AND PLAN: 1. Acute kidney injury. 2. Hyperkalemia. 3. Bicytopenia. 4. Cholangiocarcinoma. 5. Insulin-dependent diabetes type 2. 6. Hyperbilirubinemia. 7. Questionable hepatorenal syndrome. 8. Cirrhosis. PLAN: 1. For JULIEN, decreased p.o. intake with a combination of diuretics with spironolactone, Lasix, and additionally DOMINIQUE inhibitors additionally with cirrhosis and possible hepatorenal syndrome. Gentle IV fluids. The patient does have dry mucous membranes in mouth. We will check urine lytes, hold nephrotoxins, and monitor. History And Physical [address] [address] NAME: HIRAL MERIDA : 51 STATUS : ADM IN [facility]#: [id number] AGE: 61 ADM/REG DATE : 08/15/16 MR#: [id number] REPORT SERV DATE: 08/15/16 DICTATED BY: TERI BENNETT DATE: 08/15/16 REPORT STATUS : Draft TRANSCRIBED BY: MODL DATE: 08/15/16 2. Hypokalemia likely secondary to JULIEN. Stop DOMINIQUE inhibitor and spironolactone. No peaked T waves. Has been given D5, bicarb, and insulin in the emergency room. Start Kayexalate. The patient has had diarrhea. Serial BMP and IV fluids. 3. Bicytopenia secondary to liver disease. Monitor. Platelets quite low. We will hold anticoagulation. Place on SCD and Taiwo's. 4. Cholangiocarcinoma. Has been discussed with Dr. Love, possible [place] evaluation per the patient. Awaiting recommendations from Dr. Love and Dr. Chen. We will consult Oncology, as the patient and family are requesting additional education. 5. Insulin-dependent diabetes type 2. Levemir and sliding scale insulin. 6. Hyperbilirubinemia. Questionable ursodiol. We will consult Dr. Ro. 7. Hepatorenal syndrome secondary to cirrhosis. Did have elevated ammonia, but down to 32. The patient is declining lactulose currently, as the patient is currently having diarrhea. Guarded prognosis due to underlying pathology. Discussed with the patient and family. DDN/MODL Teri Bennett MD / [id number] CC: MD Yanet Funk D.O. F.A.C.P.
[~2016-08-15 14:12] MED LIST changes: +BION TEARS OPH; +CYANO1000T PO; +INDE60 PO; +MUCINEX PO; +NORV10 PO; +OMNICEF300 PO; +PRESERVISION A1 EAC1 PO; +PRIN20 PO; +PROVHFA INH; +SPIRO25 PO; +T PO; +VITAMIN D1000 UNI1 PO
[2016-08-15 15:42] LABS: BASOPHILS 0.9 %; BASOPHILS ABSOLUTE 0.02 10/3/uL (0.0-0.16); EOSINOPHILS 2.6 %; EOSINOPHILS ABSOLUTE 0.06 10/3/uL (0.0-0.53); HEMATOCRIT 40.5 % (40.0-51.0); HEMOGLOBIN 13.9 g/dL (13.6-17.8); IMMATURE GRANULOCYTES 0.9 %; IMMATURE GRANULOCYTES ABSOLUTE 0.02 10/3/uL (0.0-0.11); LYMPHOCYTES 58.1 %; LYMPHOCYTES ABSOLUTE 1.36 10/3/uL (0.67-4.30); MEAN CORPUS HGB CONC 34.3 g/dL (32.0-36.0); MEAN CORPUSCULAR HEMOGLOB 32.8 pg (26.0-34.0); MEAN CORPUSCULAR VOLUME 95.5 fL (80-100); MEAN PLATELET VOLUME 11.2 fL (9.2-13.0); MONOCYTES 11.5 %; MONOCYTES ABSOLUTE 0.27 10/3/uL (0.21-1.20); NEUTROPHILS ABSOLUTE 0.61 10/3/uL (2.02-8.40); NUCLEATED RED BLOOD CELLS 9.9 /100WBC (0-0); RBC DISTRIBUTION WIDTH 18.7 % (12.0-16.0); RED CELL COUNT 4.24 10/6/uL (4.7-6.1)
[2016-08-15 15:46] LABS: INTERNATIONAL NORMAL RATI 2.4 UNITS (-); PARTIAL THROMBO TIME 38.7 SEC (22.5-37.2)
[2016-08-15 15:47] LABS: ER CBC TAT 0 Hrs 14 Mins; PLATELET COUNT 22 10/3/uL (150-400); PROTIME (NOT ORD) 25.9 SEC (12.0-14.5); WHITE BLOOD CELLS 2.3 10/3/uL (4.5-10.5)
[2016-08-15 15:49] LABS: MANUAL DIFF NO %
[2016-08-15 15:54] LABS: A/G RATIO 0.5 (0.7-1.9); ALBUMIN 2.1 G/DL (3.5-5.0); CALCIUM, SERUM 8.4 MG/DL (8.5-10.4); CHLORIDE, SERUM 107 MMOL/L (96-112); CO2 (CARBON DIOXIDE) 23 MMOL/L (24-34); GLUCOSE, SERUM 182 MG/DL (60-99); SGOT(AST) 130 U/L (5-40); SGPT(ALT) 82 U/L (5-65); SODIUM, SERUM 135 MMOL/L (135-148); TOTAL PROTEIN 6.1 G/DL (6.0-8.5)
[2016-08-15 15:55] LABS: ALKALINE PHOSPHATASE 588 U/L (45-117); BUN (BLOOD UREA NITROGEN) 88 MG/DL (6-23); CREATININE 2.22 MG/DL (0.70-1.30); GFR AFRICAN AMERICAN 35 ML/MIN (>=60); GFR NON AFRICAN AMERICAN 30 ML/MIN (>=60); POTASSIUM, SERUM 6.3 MMOL/L (3.5-5.3); TOTAL BILIRUBIN 5.2 MG/DL (0-1.2)
[2016-08-15] MEDS ORDERED: SPIRO25 PO (16:25)
[2016-08-15] MEDS ORDERED: L40 PO (16:25)
[2016-08-15] MEDS ORDERED: INDE60 PO (16:26)
[2016-08-15] MEDS ORDERED: PROVHFA INH (16:27)
[2016-08-15] MEDS ORDERED: LEVEMFLXPN SC (16:28)
[2016-08-15] MEDS ORDERED: PRILOSEC40 MG PO (16:28)
[2016-08-15 16:31] LABS: BAND NEUTROPHILS 9 %; BASOPHILS 1 %; BASOPHILS ABSOLUTE (CALC) 0.02 10/3/uL (0.0-0.16); EOSINOPHILS 7 %; EOSINOPHILS ABSOLUTE (CALC) 0.16 10/3/uL (0.0-0.53); ER DIFF TAT 0 Hrs 58 Mins; LYMPHOCYTES 27 %; LYMPHOCYTES ABSOLUTE (CALC) 0.62 10/3/uL (0.67-4.30); MONOCYTES 13 %; SEGMENTED NEUTROPHIL (0) 43 %; TOTAL NUCLEATED CELLS 100
[2016-08-15] MEDS ORDERED: PRIN20 PO (16:31)
[2016-08-15 16:32] LABS: ANISOCYTOSIS 1+ (5-10/OIF) (0-5/OIF); PATH REVIEW YES; POLYCHROMASIA 1+ (2-5/OIF) (0-1/OIF)
[2016-08-15] MEDS ORDERED: NOVOLOG SC (16:33)
[2016-08-15] MEDS ORDERED: NORV10 PO (16:33)
[2016-08-15] MEDS ORDERED: PRESERVISION A1 EACH PO (16:34)
[2016-08-15] MEDS ORDERED: VITAMIN D31000 UNIT PO (16:35)
[2016-08-15 23:39] LABS: CALCIUM, SERUM 8.2 MG/DL (8.5-10.4); CHLORIDE, SERUM 106 MMOL/L (96-112); CO2 (CARBON DIOXIDE) 21 MMOL/L (24-34); CREATININE 2.39 MG/DL (0.70-1.30); GFR AFRICAN AMERICAN 32 ML/MIN (>=60); GFR NON AFRICAN AMERICAN 28 ML/MIN (>=60); POTASSIUM, SERUM 5.9 MMOL/L (3.5-5.3); SODIUM, SERUM 138 MMOL/L (135-148)
[2016-08-15 23:43] LABS: BUN (BLOOD UREA NITROGEN) 93 MG/DL (6-23); GLUCOSE, SERUM 256 MG/DL (60-99)
[2016-08-16 06:54] LABS: HEMATOCRIT 38.9 % (40.0-51.0); MEAN CORPUS HGB CONC 33.4 g/dL (32.0-36.0); MEAN CORPUSCULAR HEMOGLOB 32.2 pg (26.0-34.0); MEAN CORPUSCULAR VOLUME 96.3 fL (80-100); NUCLEATED RED BLOOD CELLS 5.9 /100WBC (0-0); PLATELET COUNT 19 10/3/uL (150-400); RBC DISTRIBUTION WIDTH 18.7 % (12.0-16.0); RED CELL COUNT 4.04 10/6/uL (4.7-6.1); WHITE BLOOD CELLS 2.2 10/3/uL (4.5-10.5)
[2016-08-16 06:55] LABS: MANUAL DIFF YES %
[2016-08-16 07:09] LABS: ALKALINE PHOSPHATASE 577 U/L (45-117); C-REACTIVE PROTEIN 71.4 MG/L (<8.0); CALCIUM, SERUM 8.3 MG/DL (8.5-10.4); CHLORIDE, SERUM 108 MMOL/L (96-112); CO2 (CARBON DIOXIDE) 17 MMOL/L (24-34); CREATININE 2.16 MG/DL (0.70-1.30); GFR AFRICAN AMERICAN 36 ML/MIN (>=60); GFR NON AFRICAN AMERICAN 31 ML/MIN (>=60); INDIRECT BILIRUBIN(NOT ORDER) 1.6 MG/DL (0.1-0.9); POTASSIUM, SERUM 5.6 MMOL/L (3.5-5.3); SGOT(AST) 142 U/L (5-40); SGPT(ALT) 86 U/L (5-65); SODIUM, SERUM 137 MMOL/L (135-148); TOTAL BILIRUBIN 5.1 MG/DL (0-1.2); TOTAL PROTEIN 5.9 G/DL (6.0-8.5)
[2016-08-16 07:10] LABS: BUN (BLOOD UREA NITROGEN) 100 MG/DL (6-23); DIRECT BILIRUBIN 3.5 MG/DL (0.0-0.4); GLUCOSE, SERUM 179 MG/DL (60-99)
[2016-08-16 07:23] LABS: ANISOCYTOSIS 1+ (5-10/OIF) (0-5/OIF); BASOPHILS 1 %; BASOPHILS ABSOLUTE (CALC) 0.02 10/3/uL (0.0-0.16); EOSINOPHILS 1 %; EOSINOPHILS ABSOLUTE (CALC) 0.02 10/3/uL (0.0-0.53); LYMPHOCYTES 59 %; MONOCYTES 2 %; MONOCYTES ABSOLUTE (CALC) 0.04 10/3/uL (0.21-1.20); NEUTROPHILS ABSOLUTE (CALC) 0.81 10/3/uL (2.02-8.40); SEGMENTED NEUTROPHIL (0) 37 %; TOTAL NUCLEATED CELLS 100
[2016-08-16 10:23] LABS: ASCORBIC ACID (UR NOT ORDER) NEG (NEG); BILIRUBIN, URINE NEGATIVE (NEG); KETONE, URINE NEGATIVE (NEG); LEUKOCYTE ESTERASE(NOT OR NEG (NEG); WBC (NOT ORDERED) (RFLEX) 2 (0-5)
[2016-08-16 12:14] LABS: CALCIUM, SERUM 8.1 MG/DL (8.5-10.4); CHLORIDE, SERUM 106 MMOL/L (96-112); CO2 (CARBON DIOXIDE) 17 MMOL/L (24-34); CREATININE 2.24 MG/DL (0.70-1.30); GFR AFRICAN AMERICAN 35 ML/MIN (>=60); GFR NON AFRICAN AMERICAN 30 ML/MIN (>=60); SODIUM, SERUM 136 MMOL/L (135-148)
[2016-08-16 12:15] LABS: BUN (BLOOD UREA NITROGEN) 93 MG/DL (6-23); GLUCOSE, SERUM 227 MG/DL (60-99)
[2016-08-17 07:46] LABS: HEMATOCRIT 35.7 % (40.0-51.0); HEMOGLOBIN 11.9 g/dL (13.6-17.8); MEAN CORPUS HGB CONC 33.3 g/dL (32.0-36.0); MEAN PLATELET VOLUME 11.1 fL (9.2-13.0); RBC DISTRIBUTION WIDTH 18.8 % (12.0-16.0); RED CELL COUNT 3.72 10/6/uL (4.7-6.1)
[2016-08-17 07:47] LABS: PLATELET COUNT 15 10/3/uL (150-400); WHITE BLOOD CELLS 1.8 10/3/uL (4.5-10.5)
[2016-08-17 07:48] LABS: MANUAL DIFF YES %
[2016-08-17 07:53] LABS: INTERNATIONAL NORMAL RATI 2.3 UNITS (-); PROTIME (NOT ORD) 24.9 SEC (12.0-14.5)
[2016-08-17 08:01] LABS: A/G RATIO 0.8 (0.7-1.9); ALBUMIN 2.6 G/DL (3.5-5.0); ALKALINE PHOSPHATASE 556 U/L (45-117); BUN (BLOOD UREA NITROGEN) 87 MG/DL (6-23); CALCIUM, SERUM 8.3 MG/DL (8.5-10.4); CHLORIDE, SERUM 109 MMOL/L (96-112); CO2 (CARBON DIOXIDE) 20 MMOL/L (24-34); CREATININE 1.73 MG/DL (0.70-1.30); GFR AFRICAN AMERICAN 48 ML/MIN (>=60); GFR NON AFRICAN AMERICAN 41 ML/MIN (>=60); GLOBULIN 3.4 G/DL (2.5-4.1); GLUCOSE, SERUM 168 MG/DL (60-99); POTASSIUM, SERUM 5.4 MMOL/L (3.5-5.3); SGOT(AST) 140 U/L (5-40); SGPT(ALT) 85 U/L (5-65); SODIUM, SERUM 140 MMOL/L (135-148); TOTAL BILIRUBIN 5.5 MG/DL (0-1.2)
[2016-08-17 08:40] LABS: ANISOCYTOSIS 1+ (5-10/OIF) (0-5/OIF); BAND NEUTROPHILS 4 %; EOSINOPHILS 4 %; EOSINOPHILS ABSOLUTE (CALC) 0.07 10/3/uL (0.0-0.53); IMMATURE GRANS ABSOLUTE (CALC) 0.04 10/3/uL (0.0-0.11); LYMPHOCYTES 40 %; LYMPHOCYTES ABSOLUTE (CALC) 0.72 10/3/uL (0.67-4.30); METAMYELOCYTES 2 %; MONOCYTES 14 %; MONOCYTES ABSOLUTE (CALC) 0.25 10/3/uL (0.21-1.20); NEUTROPHILS ABSOLUTE (CALC) 0.72 10/3/uL (2.02-8.40); SEGMENTED NEUTROPHIL (0) 36 %; TOTAL NUCLEATED CELLS 50
[2016-08-17 08:41] LABS: POLYCHROMASIA 1+ (2-5/OIF) (0-1/OIF)
[2016-08-18 06:53] LABS: HEMATOCRIT 36.2 % (40.0-51.0); HEMOGLOBIN 12.2 g/dL (13.6-17.8); INTERNATIONAL NORMAL RATI 2.3 UNITS (-); MANUAL DIFF YES %; MEAN CORPUS HGB CONC 33.7 g/dL (32.0-36.0); MEAN CORPUSCULAR HEMOGLOB 32.9 pg (26.0-34.0); MEAN CORPUSCULAR VOLUME 97.6 fL (80-100); MEAN PLATELET VOLUME 9.8 fL (9.2-13.0); NUCLEATED RED BLOOD CELLS 6.1 /100WBC (0-0); PLATELET COUNT 12 10/3/uL (150-400); PROTIME (NOT ORD) 24.7 SEC (12.0-14.5); RBC DISTRIBUTION WIDTH 19.2 % (12.0-16.0); RED CELL COUNT 3.71 10/6/uL (4.7-6.1); WHITE BLOOD CELLS 1.5 10/3/uL (4.5-10.5)
[2016-08-18 07:01] LABS: ALBUMIN 3.2 G/DL (3.5-5.0); ALKALINE PHOSPHATASE 528 U/L (45-117); BUN (BLOOD UREA NITROGEN) 74 MG/DL (6-23); CHLORIDE, SERUM 110 MMOL/L (96-112); CO2 (CARBON DIOXIDE) 21 MMOL/L (24-34); CREATININE 1.55 MG/DL (0.70-1.30); GFR AFRICAN AMERICAN 54 ML/MIN (>=60); GFR NON AFRICAN AMERICAN 47 ML/MIN (>=60); GLOBULIN 3.3 G/DL (2.5-4.1); GLUCOSE, SERUM 141 MG/DL (60-99); POTASSIUM, SERUM 4.9 MMOL/L (3.5-5.3); SGOT(AST) 123 U/L (5-40); SGPT(ALT) 79 U/L (5-65); SODIUM, SERUM 142 MMOL/L (135-148); TOTAL BILIRUBIN 6.9 MG/DL (0-1.2); TOTAL PROTEIN 6.5 G/DL (6.0-8.5)
[2016-08-18 07:16] LABS: BAND NEUTROPHILS 4 %; EOSINOPHILS 2 %; EOSINOPHILS ABSOLUTE (CALC) 0.03 10/3/uL (0.0-0.53); LYMPHOCYTES 58 %; LYMPHOCYTES ABSOLUTE (CALC) 0.87 10/3/uL (0.67-4.30); MONOCYTES 6 %; MONOCYTES ABSOLUTE (CALC) 0.09 10/3/uL (0.21-1.20); NEUTROPHILS ABSOLUTE (CALC) 0.51 10/3/uL (2.02-8.40); PLATELET ESTIMATE DEC (ADEQUATE); POLYCHROMASIA 1+ (2-5/OIF) (0-1/OIF); SEGMENTED NEUTROPHIL (0) 30 %; TOTAL NUCLEATED CELLS 100
[2016-08-18 07:17] LABS: BURR CELLS 1+ (3-10/OIF) (0-2/OIF); TEARDROP SHAPED RBCS FEW (3-10/OIF)
[2016-08-19 07:13] LABS: HEMATOCRIT 33.8 % (40.0-51.0); HEMOGLOBIN 11.3 g/dL (13.6-17.8); MEAN CORPUS HGB CONC 33.4 g/dL (32.0-36.0); MEAN CORPUSCULAR HEMOGLOB 32.7 pg (26.0-34.0); MEAN CORPUSCULAR VOLUME 97.7 fL (80-100); NUCLEATED RED BLOOD CELLS 11.3 /100WBC (0-0); RBC DISTRIBUTION WIDTH 19.5 % (12.0-16.0); RED CELL COUNT 3.46 10/6/uL (4.7-6.1)
[2016-08-19 07:18] LABS: MANUAL DIFF YES %; PLATELET COUNT 13 10/3/uL (150-400); WHITE BLOOD CELLS 1.3 10/3/uL (4.5-10.5)
[2016-08-19 08:01] LABS: A/G RATIO 1.3 (0.7-1.9); ALBUMIN 3.4 G/DL (3.5-5.0); CALCIUM, SERUM 9.4 MG/DL (8.5-10.4); CHLORIDE, SERUM 112 MMOL/L (96-112); CO2 (CARBON DIOXIDE) 17 MMOL/L (24-34); GFR AFRICAN AMERICAN 62 ML/MIN (>=60); GFR NON AFRICAN AMERICAN 53 ML/MIN (>=60); GLOBULIN 2.7 G/DL (2.5-4.1); SGPT(ALT) 65 U/L (5-65); SODIUM, SERUM 141 MMOL/L (135-148); TOTAL BILIRUBIN 7.1 MG/DL (0-1.2); TOTAL PROTEIN 6.1 G/DL (6.0-8.5)
[2016-08-19 08:03] LABS: ANISOCYTOSIS 1+ (5-10/OIF) (0-5/OIF); BAND NEUTROPHILS 2 %; EOSINOPHILS 2 %; EOSINOPHILS ABSOLUTE (CALC) 0.03 10/3/uL (0.0-0.53); LYMPHOCYTES 48 %; LYMPHOCYTES ABSOLUTE (CALC) 0.62 10/3/uL (0.67-4.30); MONOCYTES 10 %; MONOCYTES ABSOLUTE (CALC) 0.14 10/3/uL (0.21-1.20); NEUTROPHILS ABSOLUTE (CALC) 0.51 10/3/uL (2.02-8.40); SEGMENTED NEUTROPHIL (0) 38 %; TOTAL NUCLEATED CELLS 48
[2016-08-19 08:04] LABS: ALKALINE PHOSPHATASE 428 U/L (45-117); BUN (BLOOD UREA NITROGEN) 63 MG/DL (6-23); GLUCOSE, SERUM 181 MG/DL (60-99)
[2016-08-19 08:05] LABS: SGOT(AST) 109 U/L (5-40)
[2016-08-19 15:42] LABS: BUN (BLOOD UREA NITROGEN) 61 MG/DL (6-23); CALCIUM, SERUM 9.8 MG/DL (8.5-10.4); CHLORIDE, SERUM 109 MMOL/L (96-112); CREATININE 1.51 MG/DL (0.70-1.30); GFR AFRICAN AMERICAN 56 ML/MIN (>=60); GFR NON AFRICAN AMERICAN 48 ML/MIN (>=60); GLUCOSE, SERUM 186 MG/DL (60-99); POTASSIUM, SERUM 5.1 MMOL/L (3.5-5.3); SODIUM, SERUM 139 MMOL/L (135-148)
[2016-08-19 15:43] LABS: CO2 (CARBON DIOXIDE) 23 MMOL/L (24-34)
[2016-08-20 09:07] LABS: HEMATOCRIT 31.7 % (40.0-51.0); HEMOGLOBIN 10.4 g/dL (13.6-17.8); MEAN CORPUS HGB CONC 32.8 g/dL (32.0-36.0); MEAN CORPUSCULAR VOLUME 97.5 fL (80-100); MEAN PLATELET VOLUME 12.2 fL (9.2-13.0); NUCLEATED RED BLOOD CELLS 9.7 /100WBC (0-0); RBC DISTRIBUTION WIDTH 19.6 % (12.0-16.0); RED CELL COUNT 3.25 10/6/uL (4.7-6.1)
[2016-08-20 09:10] LABS: A/G RATIO 1.5 (0.7-1.9); ALBUMIN 3.7 G/DL (3.5-5.0); BUN (BLOOD UREA NITROGEN) 58 MG/DL (6-23); CHLORIDE, SERUM 111 MMOL/L (96-112); CO2 (CARBON DIOXIDE) 19 MMOL/L (24-34); CREATININE 1.38 MG/DL (0.70-1.30); GFR AFRICAN AMERICAN 63 ML/MIN (>=60); GFR NON AFRICAN AMERICAN 54 ML/MIN (>=60); GLOBULIN 2.4 G/DL (2.5-4.1); GLUCOSE, SERUM 172 MG/DL (60-99); POTASSIUM, SERUM 5.2 MMOL/L (3.5-5.3); SGOT(AST) 100 U/L (5-40); SGPT(ALT) 52 U/L (5-65); SODIUM, SERUM 136 MMOL/L (135-148); TOTAL BILIRUBIN 7.3 MG/DL (0-1.2); TOTAL PROTEIN 6.1 G/DL (6.0-8.5)
[2016-08-20 09:11] LABS: ALKALINE PHOSPHATASE 402 U/L (45-117)
[2016-08-20 09:16] LABS: MANUAL DIFF YES %; PLATELET COUNT 19 10/3/uL (150-400); WHITE BLOOD CELLS 1.7 10/3/uL (4.5-10.5)
[2016-08-20 09:46] LABS: ANISOCYTOSIS 1+ (5-10/OIF) (0-5/OIF); BAND NEUTROPHILS 8 %; EOSINOPHILS 4 %; EOSINOPHILS ABSOLUTE (CALC) 0.07 10/3/uL (0.0-0.53); IMMATURE GRANS ABSOLUTE (CALC) 0.03 10/3/uL (0.0-0.11); LYMPHOCYTES 40 %; LYMPHOCYTES ABSOLUTE (CALC) 0.68 10/3/uL (0.67-4.30); METAMYELOCYTES 2 %; MONOCYTES 8 %; MONOCYTES ABSOLUTE (CALC) 0.14 10/3/uL (0.21-1.20); NEUTROPHILS ABSOLUTE (CALC) 0.78 10/3/uL (2.02-8.40); SEGMENTED NEUTROPHIL (0) 38 %; TOTAL NUCLEATED CELLS 50
[2016-08-21 06:30] LABS: HEMATOCRIT 31.1 % (40.0-51.0); HEMOGLOBIN 10.4 g/dL (13.6-17.8); MEAN CORPUS HGB CONC 33.4 g/dL (32.0-36.0); MEAN CORPUSCULAR HEMOGLOB 32.5 pg (26.0-34.0); MEAN CORPUSCULAR VOLUME 97.2 fL (80-100); NUCLEATED RED BLOOD CELLS 5.5 /100WBC (0-0); RBC DISTRIBUTION WIDTH 19.3 % (12.0-16.0)
[2016-08-21 06:32] LABS: PLATELET COUNT 12 10/3/uL (150-400)
[2016-08-21 06:33] LABS: MANUAL DIFF YES %
[2016-08-21 06:36] LABS: A/G RATIO 1.7 (0.7-1.9); ALKALINE PHOSPHATASE 429 U/L (45-117); BUN (BLOOD UREA NITROGEN) 63 MG/DL (6-23); CALCIUM, SERUM 9.5 MG/DL (8.5-10.4); CHLORIDE, SERUM 109 MMOL/L (96-112); CO2 (CARBON DIOXIDE) 20 MMOL/L (24-34); CREATININE 1.44 MG/DL (0.70-1.30); GFR AFRICAN AMERICAN 59 ML/MIN (>=60); GFR NON AFRICAN AMERICAN 51 ML/MIN (>=60); GLOBULIN 2.3 G/DL (2.5-4.1); GLUCOSE, SERUM 165 MG/DL (60-99); POTASSIUM, SERUM 5.1 MMOL/L (3.5-5.3); SGOT(AST) 84 U/L (5-40); SGPT(ALT) 44 U/L (5-65); SODIUM, SERUM 139 MMOL/L (135-148); TOTAL BILIRUBIN 8.8 MG/DL (0-1.2); TOTAL PROTEIN 6.3 G/DL (6.0-8.5)
[2016-08-21 06:46] LABS: ANISOCYTOSIS 1+ (5-10/OIF) (0-5/OIF); BAND NEUTROPHILS 1 %; EOSINOPHILS 3 %; EOSINOPHILS ABSOLUTE (CALC) 0.06 10/3/uL (0.0-0.53); IMMATURE GRANS ABSOLUTE (CALC) 0.02 10/3/uL (0.0-0.11); LYMPHOCYTES 46 %; LYMPHOCYTES ABSOLUTE (CALC) 0.92 10/3/uL (0.67-4.30); METAMYELOCYTES 1 %; MONOCYTES 16 %; MONOCYTES ABSOLUTE (CALC) 0.32 10/3/uL (0.21-1.20); NEUTROPHILS ABSOLUTE (CALC) 0.68 10/3/uL (2.02-8.40); SEGMENTED NEUTROPHIL (0) 33 %; TOTAL NUCLEATED CELLS 100
[2016-08-21] MEDS ORDERED: CONSTULOSE PO (11:54)
[2016-08-21] MEDS ORDERED: XIFAXAN550 MG PO (11:54)
[2016-08-21] MEDS ORDERED: ACT300 PO (11:55)
[2016-08-21] MEDS ORDERED: L40 PO (11:56)
== END 2016-08-21 14:00 | disposition hospice, home (50) | DRG 682 ==
LOC: ER 14:12 → 5SO 18:11 → 2SO 21:10
PROVIDERS: Emergency Medicine; Internal Medicine; Student in an Organized Health Care Education/Training Program
DX: N17.9 Acute kidney failure, unspecified (principal); K76.7 Hepatorenal syndrome; D61.818 Other pancytopenia; C22.1 Intrahepatic bile duct carcinoma; E86.9 Volume depletion, unspecified; K70.30 Alcoholic cirrhosis of liver without ascites; E87.5 Hyperkalemia; E11.9 Type 2 diabetes mellitus without complications; F10.21 Alcohol dependence, in remission; E80.6 Other disorders of bilirubin metabolism; Z51.5 Encounter for palliative care; R09.02 Hypoxemia; Z80.0 Family history of malignant neoplasm of digestive organs; Z82.49 Family history of ischemic heart disease and other diseases of the circulatory system
CPT/HCPCS: 71010; 80048; 80053; 80076; 81001; 82140; 82570; 82962; 84300; 84540; 85025; 85610; 85652; 85730; 86140; 93005; 96374; 99291; A9270-GY; P9045; P9047